=== PATIENT | female | born 1950 | race Caucasian/White ===

== ENCOUNTER 2025-05-10 00:33 | Inpatient (IN) | payer MEDICARE ==
[2025-05-10] VITALS (7 sets, daily range): BP systolic 104–121; BP diastolic 48–78
[~2025-05-10] VITALS: Ht 162.6 cm; Wt 67.1 kg
--- NOTE | ~2025-05-10 | EKG ---
[facility] [address] [facility] [address] [place], [place] [address] Draft EK completed, results pending confirmation PATIENT NAME: RAD PATEL Electrocardiogram DATE OF : 54 PHYSICIAN: PRELIMINARY REPORT #: [id number] REPORT IS CONFIDENTIAL AND NOT TO BE RELEASED WITHOUT AUTHORIZATION
[2025-05-10] MEDS ORDERED: SODIUM CHLORIDE 0.9% 1,000 ML IV ONE ×2 (00:45→01:30)
[2025-05-10] MEDS ORDERED: IBUPROFEN 600 MG TAB PO ONE (00:45)
[2025-05-10] MEDS ORDERED: ACETAMINOPHEN 325 MG TAB PO ONE (00:45)
[2025-05-10 01:04] LABS: BASOPHILS 0.2 % (0.1-1.2); EOSINOPHILS 0.1 % (0.7-5.8); LYMPHOCYTES 2.7 % (19.3-51.7); MCH 30.6 PG (25.6-32.2); MCHC 33.3 g/dL (32.2-35.5); MCV 91.7 fL (79.4-94.8); MONOCYTES 1.3 % (4.7-12.5); NEUTROPHILS 95.1 % (34.0-71.1); RBC 3.27 M/uL (3.93-5.22)
[2025-05-10 01:25] LABS: INR 1.19 (0.80-1.30); PROTIME 14.4 Sec (11.2-14.2)
[2025-05-10 01:26] LABS: ALT (SGPT) 46.0 U/L (14-59); AST (SGOT) 118.0 U/L (15-37); GLOMERULAR FILTRATION RATE,EST 34.0 mL/min (>60); PROTEIN, TOTAL 8.3 g/dL (6.4-8.2); UREA NITROGEN 31.0 mg/dL (7-18)
[2025-05-10 01:30] LABS: LACTIC ACID, BLOOD 1.7 mmol/L (0.4-2.0)
[2025-05-10 01:32] LABS: INFLUENZA B NAA NEGATIVE (NEGATIVE); RESPIRATORY SYNCYTIAL VIR NAA NEGATIVE (NEGATIVE)
[2025-05-10 02:45] LABS: BLOOD/HGB, URINE LARGE (Negative); KETONE, URINE TRACE (Negative); LEUK ESTERASE, URINE LARGE (negative); NITRITE, URINE NEGATIVE (negative)
[2025-05-10 03:05] LABS: BACTERIA, URINE 2+ /hpf (negative); CASTS, URINE GRANULAR 1+ \\lpf; CRYSTALS, URINE NONE SEEN (0-1+); EPITHELIAL CELLS, URINE SQUAMOUS 1+ /lpf (0-1+); REFLEX CULTURE, URINE Yes (No)
[2025-05-10] MEDS ORDERED: DEXTROSE 5% - LACTATED RINGERS 1,000 ML IV SCH (03:30)
[2025-05-10] MEDS ORDERED: MORPHINE SULFATE 4 MG/ML VIAL IV PRN (03:30)
[2025-05-10] MEDS ORDERED: IBUPROFEN 600 MG TAB PO PRN (03:30)
[2025-05-10] MEDS ORDERED: ACETAMINOPHEN 325 MG TAB PO PRN (03:30)
[2025-05-10] MEDS ORDERED: PIPERACILLIN/TAZOBACTAM 4.5 GM in DEXTROSE 5% 100 ML IV SCH (06:00)
--- NOTE | 2025-05-10 06:25 | NUR ---
0450 - PT ADMITTED TO ROOM 107 VIA STRETCHER. PT IS ON ROOM AIR, 2 SL PRESENT, PATENT. SERBIAN SPEAKING ONLY, ALL CARES, PROCEDURES AND ADMIT QUESTINS AND ASSESSMENTS EXPLAINED TO PT IN SERBIAN. SLOW TO RESPOND, RED SCLERA, BLUISH RING AROUND BOTH EYES PRESENT, DENIES ANY VISUAL PROBLEMS, DOES C/O SOME NASL STUFFINESS. MISSING SOME UPPER TEETH AND DARK DISCOLORED AND CHIPPED LOWER TEETH, DENIES ANY THROAT ISSUES. LUNGS CLEAR BILAT, ABD LARGE TENDER MORE ON THE RIGHT THAN LEFT. BROWNISH DISCOLORATION OF BILAT MID CALVES PRESENT. EDEMA NOTED FROM L HIP TO ANKLES, PITTING EDEMA. LBM WAS THIS AM. WAS STRAIGHT CATH IN THE ER, DENIES FEELING NAUSEATED AT THIS TIME. FAMILY IN ROOM.
--- NOTE | 2025-05-10 07:30 | NUR ---
REPORT RECEIVED FROM HUMAN RESOURCES MANAGER MANUFACTURING RN. PT RESTING IN BED, EYES CLOSED. NO DISTRESS NOTED. FAMILY AT BEDSIDE, NO NEEDS AT THIS TIME
--- NOTE | 2025-05-10 08:23 | NUR ---
HOURLY ROUNDING, CHECKED ON PATIENT NOTICED SHE NEEDED ASSISTANCE WHEN WALKING A STAND BY ASSIST. WALKED PATIENT TO THE BATHROOM, CHANGED PATIENT LINENS. GOT HER RECLINER CHAIR SET UP FOR BREAKFEAST. PATIENT IS NOW IN RECLINER CHAIR. UPDATED BOARD AND PLACED CALL LIGHT WITH IN REACH
--- NOTE | 2025-05-10 09:10 | NUR ---
AT BEDSIDE WITH DR FLOWERS DISCUSSING POC WITH PT. MATERIAL HANDLING EQUIPMENT STEVEDORE USED, [id number]
--- NOTE | 2025-05-10 09:19 | NUR ---
HOURLY ROUNDIGN NURSE IS AT BEDSIDE WITH PATIENT, WORKING TO GET THE ENERGY MANAGEMENT SPECIALIST FOR ROMANIAN. CALL LIGHT HAS BEEN PLACED WITHIN REACH
--- NOTE | 2025-05-10 10:30 | NUR ---
Spoke with Janeen and her spouse, Oren. Pt. Janeen is hard of hearing. [place] Worker line with various exceptionalities teacher [phone] used. Pt is unable to hear the various exceptionalities teacher so her spouse answers mosts of the questions with pt nodding her head.She lives in an apartment with a flight of stairs. Per spouse pt has become weaker and requires help to get in and out of the house. She is able to walk to the bathroom but is very slow. She does not use any DME. Their niece came in with them. She is from [place] and will be here through New Years. She has gone home at this time. Per spouse other family can assist them if needed. He is on disability and will be home with Janeen. They do not have financial or safety concerns. Awaiting plan from Dr. Hassan for this pt.
--- NOTE | 2025-05-10 10:45 | NUR ---
PT JUDY IN CHAIR, AT BEDSIDE. DENIES ANY PAIN OR NAUSEA AT THIS TIME. DENIES FURTHER NEEDS, CALL LIGHT IN REACH
--- NOTE | 2025-05-10 10:55 | NUR ---
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
--- NOTE | 2025-05-10 11:30 | NUR ---
INTO ROOM TO ANSWER CALL LIGHT. PT NEEDING TO USE RESTROOM. PT AMBULATED TO BATHROOM VIA SBA. PT HAD SOFT BM AND WAS ABLE TO URINATE, UNMEASURED VOID. BLADDER SCAN COMPLETED AFTER VOID. APPROX [address] URINE IN BLADDER. DR FLOWERS NOTIFIED. PT NOW BACK IN CHAIR, LEGS ELEVATED PER REQUEST. DENIES ANY PAIN OR NAUSEA. AT BEDSIDE, MAINTAINANCE FLUIDS CONTINUING
--- NOTE | 2025-05-10 12:06 | NUR ---
CALL PLACED TO DR FLOWERS REGARDING POST VOID RESIDUAL. WISHES FOR DIAZ CATHETER TO BE PLACED. NO OTHER NEW ORDERS AT THIS TIME
[2025-05-10 12:28] LABS: BASOPHILS 0.2 % (0.1-1.2); EOSINOPHILS 0 % (0.7-5.8); LYMPHOCYTES 4.3 % (19.3-51.7); MCH 30.7 PG (25.6-32.2); MCHC 32.9 g/dL (32.2-35.5); MCV 93.3 fL (79.4-94.8); MONOCYTES 7.4 % (4.7-12.5); NEUTROPHILS 87.3 % (34.0-71.1); RBC 3.13 M/uL (3.93-5.22)
[2025-05-10 12:44] LABS: GLOMERULAR FILTRATION RATE,EST 33.0 mL/min (>60); UREA NITROGEN 29.0 mg/dL (7-18)
--- NOTE | 2025-05-10 13:20 | NUR ---
DR HERBERT AT BEDSIDE FOR ASSESSMENT, USING SUPERVISOR VEGETABLE FARMING.
--- NOTE | 2025-05-10 14:00 | NUR ---
INTO ROOM FOR DIAZ INSERTION. PROCEDURE EXPLAINED TO PT VIA ASSISTANT WOMEN'S ROWING COACH, AGREEABLE TO PLAN. DIAZ INSERTED WNL, PT TOLERATED WELL. APPROX 100 MLS URINE OUTPUT ON INSERTION. REMAINS AT BEDSIDE
--- NOTE | 2025-05-10 15:23 | NUR ---
PATIENT IN BED, FAMILY AT BEDSIDE. STARTED WITH VIDEO DIRECTOR IT PROJECT, RODRÍGUEZ THEN ENTERED ROOM AND PATIENT AGREED TO USE NIECE DIRECTOR IT PROJECT. ASSESMENT COMPLETE. PATIENT DENIES PAIN AND CONCERNS AT THIS TIME. FAMILY UPDATED ON CARE PLAN WITH PATIENT AGREEMENT. CALL LIGHT IN REACH.
--- NOTE | 2025-05-10 16:06 | NUR ---
Chart faxed to [facility] to establish care with note to call the spouse as pt does not speak Vietnamese and has a hearing disability.
[2025-05-10] MEDS ORDERED: POTASSIUM CHLORIDE 10 MEQ TABCR PO ONE (16:15)
--- NOTE | 2025-05-10 16:27 | NUR ---
PATIENT IN BED, FAMILY AT BEDSIDE. CALL LIGHT IN REACH. SCHEDULED MEDICATION ADMINISTERED PER EMAR.
--- NOTE | 2025-05-10 17:42 | NUR ---
SPOKE WITH MD FLOWERS. VERBAL ORDER RECEIVED FOR REGULAR DIET. PATIENT IN BED, FAMILY AT BEDSIDE. NIECE TRANSLATES. ANSWERED FAMILY AND PATIENT QUESTIONS. SUPPLIED PATIENT WITH SANDWICH AT HER REQUEST. CALL LIGHT IN REACH. PATIENT AND FAMILY DENY CONCERNS AT THIS TIME.
--- NOTE | 2025-05-10 18:11 | NUR ---
PATIENT HAS A DIAZ INSERTED AT 1330 BY ANA LILIA GERMAN. DIAZ NOT DOCUMENTED IN I'S AND O'S CHART- URINE AMOUNT 400 ML CALL LIGHT HAS BEEN PLACED WITHIN REACH NO REQUEST FROM PATIENT AT THIS TIME
--- NOTE | 2025-05-10 18:20 | NUR ---
PATIENT IN BATHROOM, BED MAKER AT BEDSIDE.
--- NOTE | 2025-05-10 19:15 | NUR ---
PT SITTING UP IN THE CHAIR, REPORTS NO PAIN OR NEEDS AT THIS TIME. CALL LIGHT WITHIN REACH, BED AT LOWEST POSITION. WHITEBOARD UPDATED, REPORT RECIEVED FROM ANA LILIA COHEN.
--- NOTE | 2025-05-10 19:50 | NUR ---
DR FLOWERS AT BEDSIDE SPEAKING WITH PT, THIS RN TRANSLATING. PT IN DENIAL OF DIAGNOSIS AT THIS TIME, REPORTS SHE WOULD LIKE TIME TO THINK ABOUT IT AND WAIT FOR HER FAMILY TO ARRIVE BEFORE MAKING ANY DECISIONS REGARDING BEING TRANSFERED TO [facility], PT AGREES TO CONTINUE TREATMENT HERE. PLAN IS TO SPEAK WTIH FAMILY, , AND PATENT IN THE MORNING TO COME UP WITH A PLAN. NO NEEDS AT THIS TIME, CALL LIGHT WITHIN REACH, PT WOULD LIKE TO REMAIN UP TO THE CHAIR AT THIS TIME.
[2025-05-10] MEDS ORDERED: ENOXAPARIN SODIUM 40 MG/0.4 ML SYR SUB-Q SCH (21:00)
--- NOTE | 2025-05-10 21:45 | NUR ---
PT LAYING IN BED WITH SISTER IN LAW AT BEDSIDE. MEDS GIVEN PER ORDER, EDUCATION COMPLETE. NO OTHER NEEDS AT THIS TIME, CALL LIGHT WITHIN REACH, BED AT LOWEST POSITION.
[2025-05-10] MEDS ORDERED: PIPERACILLIN/TAZOBACTAM 4.5 GM in SODIUM CHLORIDE 0.9% 100 ML IV SCH (22:00)
--- NOTE | 2025-05-10 23:43 | NUR ---
PT LAYING WITH EYES CLOSED, UNLABORED BREATHING. SISTER IN LAW AT BEDSIDE, NO APPARENT NEEDS, CALL LIGHT WITHIN REACH, BED AT LOWEST POSITION, LIGHTS OFF.
[2025-05-11] VITALS (7 sets, daily range): BP systolic 106–152; BP diastolic 53–73
[2025-05-11 01:15] LABS: CANCER ANTIGEN 125 141 U/mL (<=38)
--- NOTE | 2025-05-11 01:55 | NUR ---
VS TAKEN, DIAZ EMPTIED, I&OS CHARTED, PT REPORTS NO NEEDS AT THIS TIME, ORDERED ABX COMPLETED, PTS IV SL AT THIS TIME. CALL LIGHT WITHIN REACH, BED AT LOWEST POSITION.
--- NOTE | 2025-05-11 03:45 | NUR ---
PT LAYING IN BED, EYES CLOSED, UNLABORED BREATHING. NO NEEDS AT THIS TIME, CALL LIGHT WITHIN REACH, BED AT LOWEST POSITION. SISTER IN LAW AT BEDSIDE, LIGHTS OFF.
[2025-05-11 05:26] LABS: BASOPHILS 0.2 % (0.1-1.2); EOSINOPHILS 0 % (0.7-5.8); LYMPHOCYTES 5.0 % (19.3-51.7); MCH 30.4 PG (25.6-32.2); MCHC 32.8 g/dL (32.2-35.5); MCV 92.5 fL (79.4-94.8); MONOCYTES 10.3 % (4.7-12.5); NEUTROPHILS 83.9 % (34.0-71.1); RBC 2.93 M/uL (3.93-5.22)
[2025-05-11 05:50] LABS: ALT (SGPT) 39.0 U/L (14-59); AST (SGOT) 65.0 U/L (15-37); GLOMERULAR FILTRATION RATE,EST 34.0 mL/min (>60); PROTEIN, TOTAL 7.0 g/dL (6.4-8.2); UREA NITROGEN 26.0 mg/dL (7-18)
--- NOTE | 2025-05-11 06:20 | NUR ---
VS TAKEN, PT ASSISTED TO THE BATHROOM W/ SBA, FRESH BRIEF IN PLACE. PT BACK TO BED, JOE SLAUGHTER. ORDERED ABX RUNNING PER ORDER. PT REPORTS NO PAIN AT THIS TIME, NO OTHER NEEDS AT THIS TIME, CALL LIGHT WITHIN REACH, BED AT LOWEST POSITION.
--- NOTE | 2025-05-11 07:50 | NUR ---
PATIENT IN BED, CALL LIGHT IN REACH. PATIENT PROVIDED WITH NEW ICE WATER AT HER REQUEST. PATIENT DENIES FURTHER CONCERNS AT THIS TIME.
--- NOTE | 2025-05-11 09:00 | NUR ---
Spoke with Janeen and her TESS, Dereck, with the [employer] using jewelry sales [phone]. Pt has pocket talkers in place and is able to hear the jewelry sales. Pt does not answer most questions unless prompted by her TESS. Pt is aware she will need to transfer to a higher level of care. We discussed we are waiting for a bed to open. Pt also has concerns as they do not have a car and they do not have any family members who can drive them. is not present today. Pt does state she is willing to go. She wants her spouse to be able to ride with her. I let her know we will need to ask EMS. She denies other questions and so does her TESS. I did speak with Dr. Hollis, Hospitalist, he states pt will need to go by EMS as she has AFIB and will need to be monitored.
--- NOTE | 2025-05-11 09:16 | NUR ---
HOURLY ROUNDING PATIENT LAYING IN BED, NO REQUEST FAMILY AT BED SIDE. CALL LIGHT HAS BEEN PLACED WITHIN REACH. WARM BLANKET HAS BEEN GIVEN. PATIENT WAS A ONE PERSON ASSIST WHEN TRANSFERING FROM BED TO RECLINER CHAIR
--- NOTE | 2025-05-11 09:54 | NUR ---
PATIENT IN BED, FAMILY AT BEDSIDE. USED PALLIATIVE CARE [place] PRACTITIONER [place] [id number]. ASSESMENT COMPLETE. PATIENT REPORTS CHRONIC LEFT LEG CRAMPING, DENIES FURTHER CONCERNS. WARM PACK PROVIDED AT PATIENT REQUEST. CALL LIGHT IN REACH.
--- NOTE | 2025-05-11 09:59 | NUR ---
DC REVIEW: ACUTE COMPLEX CARE NEEDS REQUIRING A HIGHER LEVEL OF CARE NOTED BARRIER TO DC AWAITING TRANSFER TO A HIGHER LEVEL OF CARE ADD:1-2 DAYS NO ACTIONS REQUIRED
--- NOTE | 2025-05-11 10:36 | NUR ---
PATIENT IN CHAIR, FAMILY AT BEDSIDE. CALL LIGHT IN REACH. PATIENT DENIES CONCERNS.
--- NOTE | 2025-05-11 11:47 | NUR ---
RECEIVED RETURN CALL FROM KANU. I REVIEWED THAT MD WOULD LIKE FAMILY MEETING AND REQUESTED FAMILY PROVIDE THE BEST TIME. KANU REPORTS ALL FAMLY IS AVAILABLE ANYTIME THIS AFTERNOON, SHE REQUESTS MD SET THE TIME WITH HIS SCHEDULE IF ABLE. I ADVISED HER I WILL SPEAK IWCHRISTIAN WYNN AND CALL HER BACK WITH TIME. SHE VERBALIZED AGREEMENT. PLACED CALL TO MD FLOWERS, NO ANSWER. LEFT VOICEMAIL REVIEWING FAMILY IS AVAILABLE IN AFTERNOON AND REQUESTED MD TO PROVIDE BEST TIME, REQUESTED RETURN CALL.
--- NOTE | 2025-05-11 11:50 | NUR ---
RECEIVED CALL FROM [facility] ADOBE BLOCK MAKER. PROVIDED PATIENT UPDATES AT HER REQUEST. SHE REQUESTS WE CALL WITH ANY CHANGES TO PATIENT CONDITION THIS MAY CHANGE PATIENT'S POSITION ON ADMIT LIST IF HER ACUITY CHANGES. SHE DENIES QUESTIONS OR CONCERNS AT THIS TIME.
--- NOTE | 2025-05-11 12:01 | NUR ---
PATIENT SISTER AT BEDSIDE. USED VIDEO SHIATSU THERAPIST. UPDATED PATIENT AND SISTER THAT FAMILY MEETING IS PLANNED FOR AFTERNOON AND WE ARE AWAITING CALL FROM MD FOR EXCAT TIME. THEY ARE AGREEABLE TO THIS AND DENY QUESTIONS OR CONCERNS AT TIHS TIME. CALL LIGHT IN REACH.
--- NOTE | 2025-05-11 13:02 | NUR ---
PATIENT IN CHAIR, FAMILY AT BEDSIDE. SPOKE WITH MD FLOWERS, HE REPORTS FAMILY MEETING AT 16:30 WILL WORK. I UPDATED FAMILY IN ROOM, THEY VERBALIZED UNDERSTANDING AND AGREEMENT. I CALLED KANU AND REVIEWED THE ABOVE. SHE VERBALIZED UNDERSTANDING AND DENIES QUESTIONS OR CONCERNS AT THIS TIME. PATIENT IN CHAIR, CALL LIGHT IN REACH.
--- NOTE | 2025-05-11 13:49 | NUR ---
HOURLY ROUNDIGN PATIENT LAYING IN BED, SEEMS A BIT JITTERY. NO REQUEST FROM PATIENT AT THIS TIME
[2025-05-11] MEDS ORDERED: POTASSIUM CHLORIDE 10 MEQ TABCR PO ONE (14:45)
--- NOTE | 2025-05-11 15:10 | NUR ---
PATIENT IN BED. FAMILY AT BEDSIDE. SCHEDULED MEDICATIONS ADMINISTERED. IV INFUSING WNL. CALL LIGHT IN REACH.
--- NOTE | 2025-05-11 15:32 | NUR ---
RECEIVED CALL FROM LAB. THEY REPORT HEMOGLOBIN A1C IS STILL NOT AVAILABLE IN HOUSE AT THIS TIME. THEY PLAN TO COMLETE LATER TODAY OR SEND OUT TOMORROW MORNING.
--- NOTE | 2025-05-11 15:33 | NUR ---
MD MET WITH FAMILY AND PATIENT, DISCUSSED CARE PLAN AND CURRENT CONDITION. FAMILY DENIES QUESTIONS AT THIS TIME. PATIENT IN BED, CALL LIGHT IN REACH. FAMILY AT BEDSIDE.
--- NOTE | 2025-05-11 16:43 | NUR ---
NOtified by staff pt now has a bed and will be leaving soon.
--- NOTE | 2025-05-11 17:15 | NUR ---
PATIENT IN BED, CALL LIGHT IN REACH. IV INFUSION COMPLETED, SALINE LOCKED IV SITE. IV SITE WNL. VITAL SIGNS COMPLETE. FAMILY AT BEDSIDE. CALL LIGHT IN REACH. PATIENT DENIES CONCERNS AT THIS TIME.
--- NOTE | 2025-05-11 17:50 | NUR ---
PATIENT OFF UNIT WITH [facility] VIA STRETCHER FOR TRANSPORT TO [facility] VIA AMBULANCE. HAND OFF REPORT PROVIDED TO EMT, HE VERBALIZED UNDERSTANDING AND DENIES QUESTIONS OR CONCERNS AT THIS TIME. I CALLED [facility] AT [phone] FOR REPORT, [facility] STATES THEY ARE NOT READY FOR REPORT AT THIS TIME AND WILL RETURN CALL. I PROVIDED PHONE NUMBER FOR RETURN CALL.
--- NOTE | 2025-05-11 18:04 | NUR ---
CALLED REPORT TO [facility] AND SPOKE WITH DEBO SUNG. PROVIDED VERBAL HAND OFF REPORT AND ANSWERED ALL QUESTIONS. SHE DENIES QUESTIONS OR CONCERNS AT THIS TIME.
[2025-05-13 15:24] LABS: ESTIMATED AVERAGE GLUCOSE 111.0 mg/dL (())
== END 2025-05-11 17:48 | disposition short-term general hospital (02) | DRG 872 ==
LOC: ED 00:33 → MS 03:24
PROVIDERS: Family Medicine; Hospitalist; ADMIT Obstetrics & Gynecology; ATTEND Obstetrics & Gynecology
PROC: 3E03329 Introduction of Other Anti-infective into Peripheral Vein, Percutaneous Approach (ICD-10-PCS; principal; 2025-05-10)
PROC: 0T9B70Z Drainage of Bladder with Drainage Device, Via Natural or Artificial Opening (ICD-10-PCS; 2025-05-10)
DX: A41.9 Sepsis, unspecified organism (principal); N17.9 Acute kidney failure, unspecified; N13.6 Pyonephrosis; C78.6 Secondary malignant neoplasm of retroperitoneum and peritoneum; C77.5 Secondary and unspecified malignant neoplasm of intrapelvic lymph nodes; N85.8 Other specified noninflammatory disorders of uterus; C55 Malignant neoplasm of uterus, part unspecified; E83.42 Hypomagnesemia; I48.91 Unspecified atrial fibrillation; E87.6 Hypokalemia; H91.90 Unspecified hearing loss, unspecified ear; K76.0 Fatty (change of) liver, not elsewhere classified; K80.20 Calculus of gallbladder without cholecystitis without obstruction; Z98.890 Other specified postprocedural states; Z79.899 Other long term (current) drug therapy
CPT/HCPCS: 36415; 51701; 71045; 74177; 80048; 80053; 81001; 82140; 82378; 82803; 83036; 83605; 83690; 83735; 85025; 85610; 85730; 86304; 87040; 87077; 87088; 87186; 87502; 93005; 93010; 96365; 96367; 96375; 99285-25; A9270; J0696; J1650; J2405; J2543; J7030; J7121; Q9967; U0002